=== PATIENT | female | born 1960 | race African-American/Black ===

== ENCOUNTER 2019-02-13 19:51 | Inpatient (IN) | payer MEDICAID ==
[~2019-02-13] VITALS: Ht 157.5 cm; Wt 95.4 kg
[2019-02-13] MEDS ORDERED: LABETALOL 5MG/ML SYR 20 MG/4 ML SYRINGE IV ONE (22:30)
[2019-02-13 23:14] LABS: EOSINOPHILS % 0.8 % (0.0-5.0); HEMATOCRIT. 39.8 % (36.0-48.0); HEMOGLOBIN. 13.3 g/dL (12.0-16.0); LYMPHOCYTES % 33.3 % (20.0-50.0); MEAN CORPUSCULAR HEMOGLOBIN 32.5 pg (28.0-32.0); MEAN CORPUSCULAR VOLUME 96.9 fL (81.0-99.0); MEAN PLATELET VOLUME 8.6 fl (7.4-10.4); MONOCYTES % 6.9 % (2.0-8.0); PLATELET 310 x1000/uL (130-400); RED CELL DISTRIBUTION WIDTH 14.8 % (11.6-14.6)
[2019-02-13] MEDS ORDERED: ACETAMINOPHEN 325MG TABLET PO ONE (23:15)
[2019-02-13 23:21] LABS: CHLORIDE 107 mEq/L (98-107)
[2019-02-14] MEDS ORDERED: LABETALOL 5MG/ML SYR 20 MG/4 ML SYRINGE IV ONE (01:30)
[2019-02-14] MEDS ORDERED: HYDRALAZINE 20MG/ML VIAL IV ONE (09:00)
[2019-02-14] MEDS ORDERED: DOCUSATE SODIUM 100MG CAPSULE PO PRN (10:30)
[2019-02-14] MEDS ORDERED: LORAZEPAM 0.5MG TABLET PO PRN (10:30)
[2019-02-14] MEDS ORDERED: ACETAMINOPHEN 325MG TABLET PO PRN (10:30)
[2019-02-14] MEDS ORDERED: HYDROCODONE/ACETAMINOPHEN 5/325MG TABLET PO PRN (10:30)
[2019-02-14] MEDS ORDERED: ONDANSETRON HCL 4MG/2ML INJ IV PRN (10:30)
[2019-02-14] MEDS ORDERED: IPRATROPIUM/ALBUTEROL 0.5-3(2.5)MG/3ML NEB INH PRN (10:30)
[2019-02-14] MEDS ORDERED: NIFEDIPINE XL 30MG TAB PO SCH (11:00)
[2019-02-14 11:23] LABS: CREATINE KINASE MB FRACTION 1.3 ng/mL (0.5-3.6)
[2019-02-14 11:54] LABS: PHOSPHORUS 3.8 mg/dL (2.5-4.9)
[2019-02-14] MEDS ORDERED: CLONIDINE 0.2MG TABLET PO SCH ×2 (15:30→18:00)
[2019-02-14 17:39] VITALS: BP 207/75
[2019-02-14 18:00] VITALS: BP 188/75
[2019-02-14] MEDS ORDERED: DILTIAZEM HCL 60MG TABLET PO SCH (18:00)
[2019-02-14 20:00] VITALS: BP 196/54
[2019-02-14] MEDS ORDERED: DILTIAZEM HCL 60MG TABLET PO NR (20:30)
[2019-02-14] MEDS ORDERED: HYDRALAZINE 20MG/ML VIAL IV PRN (20:30)
[2019-02-14 21:00] VITALS: BP 184/88
[2019-02-14] MEDS ORDERED: ATORVASTATIN CALCIUM 40MG TABLET PO SCH (21:00)
[2019-02-14 22:00] VITALS: BP 156/59
[2019-02-14 23:00] VITALS: BP 143/54
[2019-02-15] VITALS (12 sets, daily range): BP systolic 129–156; BP diastolic 52–76
[2019-02-15] MEDS: DILTIAZEM HCL 90MG TABLET PO SCH ×3 (01:07→13:35)
[2019-02-15] MEDS ORDERED: DEXTROSE 50% WATER 50ML SYRINGE IV PRN (01:30)
[2019-02-15] MEDS: CLONIDINE 0.2MG TABLET PO SCH ×3 (03:15→13:34)
[2019-02-15 06:27] LABS: BASOPHILS % 0.5 % (0.0-2.0); EOSINOPHILS % 0.8 % (0.0-5.0); HEMOGLOBIN. 12.3 g/dL (12.0-16.0); LYMPHOCYTES % 37.1 % (20.0-50.0); MEAN CORPUSCULAR HEMOGLOBIN 31.6 pg (28.0-32.0); MEAN CORPUSCULAR VOLUME 95.5 fL (81.0-99.0); MEAN PLATELET VOLUME 8.8 fl (7.4-10.4); MONOCYTES % 7.3 % (2.0-8.0); NEUTROPHILS % 54.3 % (40.0-76.0); PLATELET 289 x1000/uL (130-400); RED BLOOD CELL COUNT 3.88 mill/uL (4.2-5.4); RED CELL DISTRIBUTION WIDTH 14.8 % (11.6-14.6)
[2019-02-15] MEDS: INSULIN LISPRO 100 UNITS/ML SUBCUT SCH ×2 (06:48→12:20)
[2019-02-15] MEDS: BLOOD SUGAR DIAGNOSTIC STRIP TEST SCH ×2 (06:48→11:30)
[2019-02-15 06:49] LABS: CHLORIDE 107 mEq/L (98-107)
[2019-02-15] MEDS ORDERED: CLON0.2T12 PO (16:10)
[2019-02-15] MEDS ORDERED: DILT90TA2 PO (16:10)
[2019-02-15] MEDS ORDERED: LIP40 PO (16:10)
== END 2019-02-15 17:10 | disposition home or self-care (01) | DRG 199 ==
LOC: ER 21:09 → 3WST 02-14 02:27 → EDBEDREQSVC 02-14 11:47 → CANRESERV 02-14 13:00 → ENRESERV 02-14 13:00
PROVIDERS: ADMIT Internal Medicine; ATTEND Internal Medicine
DX: I16.1 Hypertensive emergency (principal); E11.22 Type 2 diabetes mellitus with diabetic chronic kidney disease; N18.4 Chronic kidney disease, stage 4 (severe); E66.01 Morbid (severe) obesity due to excess calories; I20.0 Unstable angina; I12.9 Hypertensive chronic kidney disease with stage 1 through stage 4 chronic kidney disease, or unspecified chronic kidney disease; J42 Unspecified chronic bronchitis; E78.5 Hyperlipidemia, unspecified; M19.90 Unspecified osteoarthritis, unspecified site; Z90.710 Acquired absence of both cervix and uterus; Z87.891 Personal history of nicotine dependence; Z68.38 Body mass index [BMI] 38.0-38.9, adult; Z88.8 Allergy status to other drugs, medicaments and biological substances; Z71.3 Dietary counseling and surveillance
CPT/HCPCS: 36415; 80048; 80061; 82088; 82550; 82553; 82962; 83036; 83735; 83880; 84100; 84244; 84443; 84484; 93005; 93306; 99285; J0360; J2405; J3490

== ENCOUNTER 2023-11-01 17:03 | Emergency (ER) | payer MEDICAID ==
[~2023-11-01] VITALS: Ht 165.1 cm; Wt 82.0 kg
[~2023-11-01 17:03] MED LIST: CLON0.2T12 PO; DILT90TA2 PO; LIP40 PO
[2023-11-01 17:08] VITALS: O2SAT 98
[2023-11-01] MEDS ORDERED: cardura (17:08)
[2023-11-01] MEDS ORDERED: lopressor (17:08)
[2023-11-01] MEDS ORDERED: benazepril (17:08)
[2023-11-01] MEDS ORDERED: lasix (17:08)
[2023-11-01] MEDS ORDERED: pantoprazole (17:08)
[2023-11-01 21:29] VITALS: BP 147/45; PULSE 73; RESP 16; TEMP 98.3
== END 2023-11-01 21:57 | disposition home or self-care (01) ==
LOC: ER 17:03
DX: M25.562 Pain in left knee (principal); E78.00 Pure hypercholesterolemia, unspecified; I10 Essential (primary) hypertension; Z88.3 Allergy status to other anti-infective agents; Z88.9 Allergy status to unspecified drugs, medicaments and biological substances
CPT/HCPCS: 73562; 99283